=== PATIENT | male | born 1940 | race Two or more races ===

== ENCOUNTER 2020-01-18 14:47 | Inpatient (IN) | payer MEDICARE, OTHER ==
[~2020-01-18] VITALS: Ht 170.2 cm; Wt 69.6 kg
[2020-01-18 16:42] LABS: Basophils # (auto) 0 10 ^3/uL (0-0.2); Basophils % (auto) 0.3 % (0.0-2.0); Eosinophils # (auto) 0 10 ^3/uL (0-0.8); Hematocrit 43.6 % (41.0-53.0); Hemoglobin 14.8 g/dL (13.5-17.5); Lymphocytes # (auto) 0.3 10 ^3/uL (0.4-5.4); Lymphocytes % (auto) 2.3 % (10.0-50.0); Mean Corpuscular Hemoglobin 31.4 pg (28.0-32.0); Mean Corpuscular Hgb Conc. 33.9 g/dL (32.0-36.0); Mean Corpuscular Volume 92.5 fL (80.0-100.0); Monocytes # (auto) 0.4 10 ^3/uL (0-1.3); Monocytes % (auto) 3.5 % (0.0-12.0); Neutrophils # (auto) 10.8 10 ^3/uL (1.6-8.6); Neutrophils % (auto) 93.9 % (37.0-80.0); Nucleated Red Blood Cells % 0.2 %; Platelet Count (auto) 249 10^3/uL (140-450); Red Blood Cells 4.71 10^6/uL (4.5-5.90); Red Cell Distribution Width 13.9 % (11.8-14.3); White Blood Cell 11.5 10^3/uL (4.4-10.8)
[2020-01-18 16:59] LABS: INR 0.99 (0.9-1.15); Partial Thromboplastin Time 29.6 sec (23.0-31.2)
[2020-01-18 17:00] LABS: Albumin 2.2 g/dL (3.4-5.0); Potassium 3.9 mmol/L (3.5-5.1)
[2020-01-18 17:03] LABS: Lactic Acid w/Reflex 3.7 mmol/L (0.4-2.0)
[2020-01-18 17:05] LABS: Total Protein 6.9 g/dL (6.4-8.2)
[2020-01-18] MEDS ORDERED: DexAMETHasone 4 MG TAB PO ONE (18:00)
[2020-01-18] MEDS ORDERED: ASCORBIC ACID 500 MG TAB PO ONE (18:00)
[2020-01-18] MEDS ORDERED: ACETAMINOPHEN 325 MG TAB PO ONE (18:00)
[2020-01-18] MEDS ORDERED: AZITHROMYCIN 500MG/ 250ML 250 ML IV ONE (18:00)
[2020-01-18] MEDS ORDERED: HYDROcodone-ACET 5/325MG TAB PO PRN (18:45)
[2020-01-18] MEDS ORDERED: ONDANSETRON HCL 4 MG/2 ML VIAL IV PRN (18:45)
[2020-01-18] MEDS ORDERED: MORPHINE SULF INJ 2 MG/ML SYRINGE 1ML IV PRN ×2 (18:45)
[2020-01-18] MEDS ORDERED: NITROGLYCERIN 0.4 MG SL TAB SL PRN (18:45)
[2020-01-18] MEDS ORDERED: ENOXAPARIN SOD 30 MG/0.3 ML SYRINGE SC SCH (18:51)
[2020-01-18] MEDS: SODIUM CHLORIDE 0.9% 1,000 ML IV SCH ×2 (18:57→20:34)
[2020-01-18] MEDS: ENOXAPARIN SOD 40 MG/0.4 ML SYRINGE SC SCH (19:11)
[2020-01-18] MEDS: ZINC SULFATE 220mg CAP or TAB PO SCH (19:11)
[2020-01-18] MEDS: CHOLECALCIFEROL (VITD3) 2,000 UNIT CAP PO SCH (19:11)
[2020-01-18 19:12] LABS: Lactate Dehydrogenase 507 U/L (87-241)
[2020-01-18 19:24] LABS: CRP High Sensitivity > 19.0 mg/dL (< 0.3)
[2020-01-18] MEDS: cefTRIAXone 1GM/50ML D5W 50 ML IV SCH (20:34)
[2020-01-18] MEDS ORDERED: BUDESONIDE (INHALATION) 0.5 MG/2 ML NEB NEB SCH (22:00)
[2020-01-18] MEDS: BUDESONIDE (INHALATION) 180 MCG IH IN SCH (22:47)
[2020-01-19] MEDS: SODIUM CHLORIDE 0.9% 1,000 ML IV SCH ×2 (03:38→21:08)
[2020-01-19 05:30] LABS: Basophils # (auto) 0.1 10 ^3/uL (0-0.2); Basophils % (auto) 0.9 % (0.0-2.0); Eosinophils # (auto) 0 10 ^3/uL (0-0.8); Hematocrit 37.7 % (41.0-53.0); Hemoglobin 13.2 g/dL (13.5-17.5); Lymphocytes # (auto) 0.3 10 ^3/uL (0.4-5.4); Lymphocytes % (auto) 2.9 % (10.0-50.0); Mean Corpuscular Hemoglobin 32.2 pg (28.0-32.0); Mean Corpuscular Volume 92.1 fL (80.0-100.0); Monocytes # (auto) 0.3 10 ^3/uL (0-1.3); Monocytes % (auto) 3.5 % (0.0-12.0); Neutrophils # (auto) 8.4 10 ^3/uL (1.6-8.6); Neutrophils % (auto) 92.7 % (37.0-80.0); Nucleated Red Blood Cells % 0.1 %; Platelet Count (auto) 226 10^3/uL (140-450); Red Blood Cells 4.09 10^6/uL (4.5-5.90); Red Cell Distribution Width 14.3 % (11.8-14.3); White Blood Cell 9.1 10^3/uL (4.4-10.8)
[2020-01-19 05:58] LABS: Albumin 1.7 g/dL (3.4-5.0); Calcium 7.4 mg/dL (8.5-10.1); Potassium 4.3 mmol/L (3.5-5.1)
[2020-01-19 06:02] LABS: BUN/Creatinine Ratio 34.8; Bilirubin, Total 0.6 mg/dL (0.2-1.0); Total Protein 5.7 g/dL (6.4-8.2)
[2020-01-19] MEDS: BUDESONIDE (INHALATION) 180 MCG IH IN SCH ×2 (06:07→21:55)
[2020-01-19] MEDS: cefTRIAXone 1GM/50ML D5W 50 ML IV SCH (08:57)
[2020-01-19] MEDS: ALBUTEROL SULF HFA 90MCG INH 200DOSE IN PRN ×2 (09:22→21:54)
[2020-01-19] MEDS: DexAMETHasone SOD PHOS 10MG/1ML VIAL INJ IV SCH (10:28)
[2020-01-19] MEDS: AZITHROMYCIN 500MG/ 250ML 250 ML IV SCH (10:28)
[2020-01-19] MEDS: FAMOTIDINE 20 MG TAB PO SCH (10:29)
[2020-01-19] MEDS: CHOLECALCIFEROL (VITD3) 2,000 UNIT CAP PO SCH (10:29)
[2020-01-19] MEDS: ASCORBIC ACID 1,000 MG TAB PO SCH (10:29)
[2020-01-19] MEDS: ZINC SULFATE 220mg CAP or TAB PO SCH (10:29)
[2020-01-19] MEDS: ENOXAPARIN SOD 40 MG/0.4 ML SYRINGE SC SCH (18:40)
[2020-01-20] MEDS: BUDESONIDE (INHALATION) 180 MCG IH IN SCH ×2 (06:50→18:30)
[2020-01-20] MEDS: ALBUTEROL SULF HFA 90MCG INH 200DOSE IN PRN ×2 (06:50→19:07)
[2020-01-20 08:19] LABS: Basophils # (auto) 0 10 ^3/uL (0-0.2); Basophils % (auto) 0.1 % (0.0-2.0); Eosinophils # (auto) 0 10 ^3/uL (0-0.8); Hematocrit 36.3 % (41.0-53.0); Hemoglobin 12.1 g/dL (13.5-17.5); Lymphocytes # (auto) 0.3 10 ^3/uL (0.4-5.4); Lymphocytes % (auto) 3.7 % (10.0-50.0); Mean Corpuscular Hemoglobin 30.8 pg (28.0-32.0); Mean Corpuscular Hgb Conc. 33.2 g/dL (32.0-36.0); Mean Corpuscular Volume 92.6 fL (80.0-100.0); Monocytes # (auto) 0.4 10 ^3/uL (0-1.3); Monocytes % (auto) 5.3 % (0.0-12.0); Neutrophils # (auto) 7.6 10 ^3/uL (1.6-8.6); Neutrophils % (auto) 90.9 % (37.0-80.0); Nucleated Red Blood Cells % 0.1 %; Platelet Count (auto) 294 10^3/uL (140-450); Red Blood Cells 3.92 10^6/uL (4.5-5.90); Red Cell Distribution Width 14.2 % (11.8-14.3); White Blood Cell 8.4 10^3/uL (4.4-10.8)
[2020-01-20 08:34] LABS: Potassium 4.1 mmol/L (3.5-5.1)
[2020-01-20 08:48] LABS: Albumin 1.7 g/dL (3.4-5.0); BUN/Creatinine Ratio 40.3; Bilirubin, Total 0.4 mg/dL (0.2-1.0); Calcium 7.3 mg/dL (8.5-10.1); Total Protein 5.4 g/dL (6.4-8.2)
[2020-01-20] MEDS: cefTRIAXone 1GM/50ML D5W 50 ML IV SCH (09:00)
[2020-01-20] MEDS: FAMOTIDINE 20 MG TAB PO SCH (10:00)
[2020-01-20] MEDS: ZINC SULFATE 220mg CAP or TAB PO SCH (10:00)
[2020-01-20] MEDS: DexAMETHasone SOD PHOS 10MG/1ML VIAL INJ IV SCH (10:00)
[2020-01-20] MEDS: AZITHROMYCIN 500MG/ 250ML 250 ML IV SCH (10:00)
[2020-01-20] MEDS: CHOLECALCIFEROL (VITD3) 2,000 UNIT CAP PO SCH (10:00)
[2020-01-20] MEDS: ASCORBIC ACID 1,000 MG TAB PO SCH (10:00)
[2020-01-20] MEDS: SODIUM CHLORIDE 0.9% 1,000 ML IV SCH ×2 (10:39→21:29)
[2020-01-20] MEDS ORDERED: FUROSEMIDE 20 MG/2 ML VIAL IV ONE (16:30)
[2020-01-20] MEDS: ENOXAPARIN SOD 40 MG/0.4 ML SYRINGE SC SCH (17:40)
[2020-01-20] MEDS ORDERED: DEXTROSE (50%) 50ML SYRG IV PRN (23:15)
[2020-01-20] MEDS ORDERED: LORazepam 0.5 MG TAB PO PRN (23:15)
[2020-01-20] MEDS ORDERED: REMDESIVIR PER PHARMACY 0 ML IV SCH (23:15)
[2020-01-20] MEDS ORDERED: REMDESIVIR 200 MG in NS 210ml LOADING DOSE ADULT IV ONE (23:30)
--- NOTE | 2020-01-21 04:50 | NUR ---
Telemetry admit from [facility]ENET[facility] TREVI[facility]OEDWINA admitted to Telemetry unit after SBAR received. Patient oriented to Alma Delia Hansen, RN primary RN, unit, room, bed, and unit policies regarding patient care and visiting hours. Patient now on continuous telemetry monitoring, tele box # 37 and telemetry reading on arrival to unit is SR. Patient placed on bedside oxygen, weighed by bedscale and encouraged to call if they need something. All questions and concerns addressed, patient verbalized understanding. Note: alert, oriented. urdu, advanced manufacturing vice president at bedside. on oxygen 15L via NR. no s/s od distress.
[2020-01-21 05:18] LABS: Chloride 110 mmol/L (98-107); Sodium 140 mmol/L (136-145)
[2020-01-21 05:30] VITALS: BP 147/67
[2020-01-21 05:56] LABS: Anion Gap 7 (5-15); BUN/Creatinine Ratio 36.6; Blood Urea Nitrogen 41 mg/dL (7-18); Calcium 7.6 mg/dL (8.5-10.1); Carbon Dioxide 23 mmol/L (21-32); GFR African American 81 mL/min; GFR Non-African American 67 mL/min; Glucose 117 mg/dL (74-106); Magnesium 2.7 mg/dL (1.6-2.6)
[2020-01-21 05:57] LABS: Cholesterol 114 mg/dL (< 200); HDL Cholesterol 26 mg/dL (40-59); LDL Cholesterol 79 mg/dL (< 100); Triglycerides 98 mg/dL (< 150)
[2020-01-21 06:37] VITALS: BP 147/67
[2020-01-21] MEDS: ACCU-CHEK COMFORT CURVE STRIP VI SCH ×4 (06:48→22:34)
[2020-01-21] MEDS: InsuLIN REG 1unit/0.01ml Soln (100units/ml) SC SCH ×4 (06:48→22:33)
--- NOTE | 2020-01-21 07:18 | NUR ---
Closing Note patient resting in bed with eyes closed, oxygen on at 15L via non-rebreather o2 sat 91%, no s/s of distress or SOB. Bed in lowest locked position with side rails up x 2 and kip light within reach. endorsed care to day shift RN
[2020-01-21 09:00] VITALS: BP 122/62
[2020-01-21] MEDS: BUDESONIDE (INHALATION) 180 MCG IH IN SCH ×2 (10:00→21:40)
--- NOTE | 2020-01-21 11:25 | NUR ---
Assessment Patient is a 79 year old male, patient is alert and oriented. Patient cognitive abilities are intact. Patient stated prior to being admitted to [facility], he could do all ADL's and ambulate independently. Patient stated that he is a diabetic. Patient stated that he lives with his Karen ([phone]), patient has plans to return home post discharge. Patient is retired and receives social security as income. Patient stated that he has transportation post discharge. Patient is receptive to receive Advance Directive form prior to discharge. Discharge planning: Patient will return home post discharge, patient will follow up care with his PCP post discharge. Patient has all supplies to resume home care for diabetes. There are no other discharge needs to address at the moment. Addendum: 01/21/20 at 1131 by ANGELO WESTBROOK Amended: Links added. Addendum: 01/21/20 at 1134 by ANGELO WESTBROOK Please disregard assessment notes above.
[2020-01-21] MEDS ORDERED: IOHEXOL 350 MG/ML 100ML IJ ONE (12:47)
[2020-01-21] MEDS: ALBUTEROL SULF HFA 90MCG INH 200DOSE IN PRN (12:57)
[2020-01-21 13:00] VITALS: BP 122/65
--- NOTE | 2020-01-21 14:45 | NUR ---
PULMONARY Dr Davidson at bedside for Pulmonary follow up, no new orders received at this time. Patient updated on plan of care, verbalized understanding.
[2020-01-21] MEDS ORDERED: REMDESIVIR 200 MG in NS 210ml LOADING DOSE ADULT IV ONE (15:00)
[2020-01-21] MEDS: DexAMETHasone SOD PHOS 10MG/1ML VIAL INJ IV SCH (15:01)
[2020-01-21] MEDS: cefTRIAXone 1GM/50ML D5W 50 ML IV SCH (15:01)
[2020-01-21] MEDS: FUROSEMIDE 20 MG/2 ML VIAL IV SCH (15:02)
[2020-01-21] MEDS: AZITHROMYCIN 500MG/ 250ML 250 ML IV SCH (15:02)
[2020-01-21] MEDS: ZINC SULFATE 220mg CAP or TAB PO SCH (15:02)
[2020-01-21] MEDS: CHOLECALCIFEROL (VITD3) 2,000 UNIT CAP PO SCH (15:03)
[2020-01-21] MEDS: FAMOTIDINE 20 MG TAB PO SCH (15:03)
[2020-01-21] MEDS: ENOXAPARIN SOD 100 MG/1 ML SYRINGE SC SCH ×2 (15:03→22:34)
[2020-01-21] MEDS: ASCORBIC ACID 1,000 MG TAB PO SCH (15:03)
--- NOTE | 2020-01-21 16:30 | NUR ---
ROUNDS Dr Espinal at bedside for rounds, new orders received and followed through. Patient updated on plan of care, verbalized understanding.
[2020-01-21 17:00] VITALS: BP 124/66
--- NOTE | 2020-01-21 19:30 | NUR ---
OPENING NOTE RECEIVED REPORT FROM DAY SHIFT RN. PATIENT IS A&O X'S 4 WITH NO S/S OF DISTRESS AND REPORTS NO PAIN AT THIS TIME. PATIENT IS ON 15L NRB MASK. SPO2 IS AT 90%. EDUCATED PATIENT ON POC AND TO USE CALL LIGHT WHEN IN NEED OF ANY ASSISTANCE. PATIENT VERBALIZED UNDERSTANDING. WITH A HELP OF RN ROSI GARCIA TRANSLATE, PATIENT SIGNED CONSENT FORMS FOR CONVALESCENT PLASMA AND REMDESIVIR. ALL QUESTIONS ANSWERED. BED IS IN LOWEST/LOCKED POSITION WITH SIDE RAILS UP X'S 2 AND CALL LIGHT IS WITHIN REACH OF PATIENT. WILL CONTINUE CARE.
--- NOTE | 2020-01-21 19:50 | NUR ---
SPOKE WITH FAMILY MEMBER PASSWORD OBTAINED AFTER CONFIRMING WITH PATIENT. PATIENT'S DAUGHTER WAS UPDATED ON POC. SHE WAS INFORMED AND ALREADY AWARE OF THE PLAN OF REMDESIVIR AND CONVALESCENT PLASMA. SHE AGREED WITH POC. ALL QUESTIONS ANSWERED AT THIS TIME.
[2020-01-21 22:00] VITALS: BP 102/54
--- NOTE | 2020-01-21 22:37 | NUR ---
REMDESIVIR VS START 106/58 HR 92 RR 22 O2 91% 15 MINS 112/67 HR 84 RR18 POST 118/55 HR 79 O2 90% PATIENT TOLERATED WELL. PATIENT DENIES ANY SYMPTOMS
[2020-01-22 05:00] VITALS: BP 137/74
[2020-01-22] MEDS: ACCU-CHEK COMFORT CURVE STRIP VI SCH ×4 (06:14→22:33)
[2020-01-22] MEDS: InsuLIN REG 1unit/0.01ml Soln (100units/ml) SC SCH ×5 (06:14→22:00)
[2020-01-22 07:07] LABS: Calcium 7.6 mg/dL (8.5-10.1); Potassium 4.3 mmol/L (3.5-5.1)
--- NOTE | 2020-01-22 07:15 | NUR ---
Opening Shift Note Received report from hourly shift manager nurse. Assumed care of patient, asleep at this time. No S/S of distress/SOB or pain.
[2020-01-22] MEDS: ALBUTEROL SULF HFA 90MCG INH 200DOSE IN PRN ×2 (07:49→22:03)
[2020-01-22] MEDS: BUDESONIDE (INHALATION) 180 MCG IH IN SCH ×3 (07:49→22:03)
--- NOTE | 2020-01-22 07:49 | NUR ---
Respiratory note: PT RECEIVED ON 15L NRB. NO RESPIRATORY DISTRESS NOTED WILL CONTINUE TO MONITOR.
[2020-01-22] MEDS: cefTRIAXone 1GM/50ML D5W 50 ML IV SCH (09:30)
[2020-01-22] MEDS: DexAMETHasone SOD PHOS 10MG/1ML VIAL INJ IV SCH (09:30)
[2020-01-22] MEDS: FAMOTIDINE 20 MG TAB PO SCH (09:32)
[2020-01-22] MEDS: ZINC SULFATE 220mg CAP or TAB PO SCH (09:32)
[2020-01-22] MEDS: FUROSEMIDE 20 MG/2 ML VIAL IV SCH (09:32)
[2020-01-22] MEDS: CHOLECALCIFEROL (VITD3) 2,000 UNIT CAP PO SCH (09:32)
[2020-01-22] MEDS: ASCORBIC ACID 1,000 MG TAB PO SCH (09:32)
[2020-01-22] MEDS: ENOXAPARIN SOD 100 MG/1 ML SYRINGE SC SCH (09:33)
[2020-01-22] MEDS: AZITHROMYCIN 500MG/ 250ML 250 ML IV SCH (11:09)
--- NOTE | 2020-01-22 11:15 | NUR ---
PULMONARY Dr Davidson at bedside for Pulmonary consult, new orders received and followed through. Patient updated on plan of care, verbalized understanding.
--- NOTE | 2020-01-22 11:50 | NUR ---
FEBRILE Axillary temp 101.6 F. Cooling measures applied and prescribed Tylenol administered. Patient educated on importance of keeping blankets off, verbalized understanding.
[2020-01-22] MEDS: ACETAMINOPHEN 500 MG TAB PO PRN (11:53)
--- NOTE | 2020-01-22 12:18 | NUR ---
ROUNDS Dr Gudino at bedside for rounds, new orders received and followed through. Patient updated on plan of care, verbalized understanding.
[2020-01-22 13:00] VITALS: BP 108/59
--- NOTE | 2020-01-22 16:30 | NUR ---
REMDESIVIR VS 1630 PRE: 104/50, 77 1645 15 MIN: 104/50, 77 1730 POST: 100/43, 74
[2020-01-22 17:00] VITALS: BP 104/50
[2020-01-22] MEDS: REMDESIVIR 100 MG in SODIUM CHL 0.9% 250 ML IV SCH (17:19)
--- NOTE | 2020-01-22 19:05 | NUR ---
Opening Shift Note Assumed care of patient, awake and alert. Mauritanian speaking. No S/S of distress/SOB or pain. Patient is on 15 L Non rebreather mask with oxygen saturation of 91%. Encouraged patient to do prone position oxygen level is 95-97%. Instructed on POC and to call for assist PRN, will continue to monitor for changes Q1hr and PRN.
[2020-01-22 22:00] VITALS: BP 114/79
[2020-01-22] MEDS: ENOXAPARIN SOD 80 MG/0.8ML SYRINGE SC SCH (22:33)
[2020-01-23] VITALS (8 sets, daily range): BP systolic 104–122; BP diastolic 47–64
--- NOTE | 2020-01-23 01:03 | NUR ---
Start of convalescent plasma transfusion. Patient no SOB and no distress seen. vital signs within normal limit. two nurses identifier verification made with jairo ramsey. will continue to monitor patient.
--- NOTE | 2020-01-23 02:07 | NUR ---
ongoing plasma transfusion. no acute distress see. continue monitoring
--- NOTE | 2020-01-23 02:45 | NUR ---
End of plasma transfusion. patient tolerated well.
[2020-01-23 06:53] LABS: Potassium 4.1 mmol/L (3.5-5.1)
[2020-01-23] MEDS: InsuLIN REG 1unit/0.01ml Soln (100units/ml) SC SCH ×4 (07:00→22:00)
[2020-01-23 07:01] LABS: Albumin 1.8 g/dL (3.4-5.0); Bilirubin, Total 0.7 mg/dL (0.2-1.0); Calcium 7.7 mg/dL (8.5-10.1); Total Protein 6.4 g/dL (6.4-8.2)
[2020-01-23] MEDS: ACCU-CHEK COMFORT CURVE STRIP VI SCH ×4 (07:08→22:45)
[2020-01-23] MEDS: BUDESONIDE (INHALATION) 180 MCG IH IN SCH ×2 (07:54→22:27)
[2020-01-23] MEDS: ALBUTEROL SULF HFA 90MCG INH 200DOSE IN PRN ×2 (07:54→22:28)
--- NOTE | 2020-01-23 07:54 | NUR ---
Respiratory note: RECEIVED PT ON 15L NRB. NO RESPIRATORY DISTRESS NOTED. WILL CONT. TO MONITOR.
--- NOTE | 2020-01-23 08:24 | NUR ---
Assessment Patient is a 79 year old male, patient was unable to speak with SW, SW called patient daughter Bharti. Per Bharti, patient is alert and oriented. Per Bharti, patient cognitive abilities are intact. Per Bharti, patient could do all ADL's and ambulate independently. Per Bharti, patient is retired and receives social security benefits as income. Per Bharti, patient lives with his and daughter. Per Bharti, patient will return home post discharge, she or her sister will provide transportation post discharge. Per Bahrti, her mom, siblings, and herself are her dad support system. Per Bharti, is requesting Advance Directive forms. Discharge planning: Patient will return home post discharge, patient will follow up care with his PCP post discharge. SUNDAY will provide Advance Directive to patient prior to discharge. There are no other discharge needs to address at the moment. Addendum: 01/23/20 at 0832 by ANGELO WESTBROOK Amended: Links added.
[2020-01-23] MEDS ORDERED: REMDESIVIR PER PHARMACY 0 ML IV SCH (09:45)
[2020-01-23] MEDS: DexAMETHasone SOD PHOS 10MG/1ML VIAL INJ IV SCH (10:15)
[2020-01-23] MEDS: cefTRIAXone 1GM/50ML D5W 50 ML IV SCH (10:15)
[2020-01-23] MEDS: ZINC SULFATE 220mg CAP or TAB PO SCH (10:15)
[2020-01-23] MEDS: ASCORBIC ACID 1,000 MG TAB PO SCH (10:15)
[2020-01-23] MEDS: FAMOTIDINE 20 MG TAB PO SCH (10:15)
[2020-01-23] MEDS: ENOXAPARIN SOD 80 MG/0.8ML SYRINGE SC SCH ×2 (10:16→22:45)
[2020-01-23] MEDS: AZITHROMYCIN 500MG/ 250ML 250 ML IV SCH (10:16)
[2020-01-23] MEDS: FUROSEMIDE 20 MG/2 ML VIAL IV SCH (10:17)
[2020-01-23] MEDS: CHOLECALCIFEROL (VITD3) 2,000 UNIT CAP PO SCH (10:51)
[2020-01-23] MEDS: REMDESIVIR 100 MG in SODIUM CHL 0.9% 250 ML IV SCH (16:34)
[2020-01-23] MEDS: ACETAMINOPHEN 500 MG TAB PO PRN (17:17)
--- NOTE | 2020-01-23 19:10 | NUR ---
Opening Shift Note Assumed care of patient, awake and alert. Fijian speaking. No S/S of distress/SOB or pain. Patient is on 15 L Non rebreather mask with oxygen saturation of 90-92%. Encouraged patient to do prone position and use IS. Bed in low locked position, siderails up x2, call light within reach. Instructed on POC and to call for assist PRN, will continue to monitor for changes Q1hr and PRN.
--- NOTE | 2020-01-24 01:00 | NUR ---
Patient would go back to supine position. Consistent reminder needed to turn prone position. will continue to monitor
[2020-01-24] MEDS: ACETAMINOPHEN 500 MG TAB PO PRN (02:17)
[2020-01-24 05:00] VITALS: BP 105/62
[2020-01-24] MEDS: InsuLIN REG 1unit/0.01ml Soln (100units/ml) SC SCH ×4 (06:33→21:53)
[2020-01-24] MEDS: ACCU-CHEK COMFORT CURVE STRIP VI SCH ×4 (06:33→21:49)
[2020-01-24] MEDS: ALBUTEROL SULF HFA 90MCG INH 200DOSE IN PRN ×2 (07:31→23:30)
[2020-01-24] MEDS: BUDESONIDE (INHALATION) 180 MCG IH IN SCH ×2 (07:31→21:40)
[2020-01-24 07:49] LABS: Potassium 4.3 mmol/L (3.5-5.1)
[2020-01-24 07:58] LABS: Albumin 1.4 g/dL (3.4-5.0); BUN/Creatinine Ratio 28.1; Bilirubin, Total 0.5 mg/dL (0.2-1.0); Calcium 7.3 mg/dL (8.5-10.1); Total Protein 5.3 g/dL (6.4-8.2)
[2020-01-24 09:00] VITALS: BP 121/59
[2020-01-24] MEDS: DexAMETHasone SOD PHOS 10MG/1ML VIAL INJ IV SCH (10:36)
[2020-01-24] MEDS: ZINC SULFATE 220mg CAP or TAB PO SCH (10:36)
[2020-01-24] MEDS: FAMOTIDINE 20 MG TAB PO SCH (10:36)
[2020-01-24] MEDS: cefTRIAXone 1GM/50ML D5W 50 ML IV SCH (10:36)
[2020-01-24] MEDS: ENOXAPARIN SOD 80 MG/0.8ML SYRINGE SC SCH ×2 (10:37→21:50)
[2020-01-24] MEDS: ASCORBIC ACID 1,000 MG TAB PO SCH (10:37)
[2020-01-24] MEDS: CHOLECALCIFEROL (VITD3) 2,000 UNIT CAP PO SCH (10:37)
[2020-01-24] MEDS: FUROSEMIDE 20 MG/2 ML VIAL IV SCH (10:38)
--- NOTE | 2020-01-24 12:33 | NUR ---
DR MONSIVAIS AT BEDSIDE FOR PULMONOLOGY CONSULT. PATIENT INSTRUCTED TO PRONE MUCH POSSIBLE. ABG ORDERED
[2020-01-24 13:00] VITALS: BP 115/54
--- NOTE | 2020-01-24 14:25 | NUR ---
PAGED DR OBRIEN FOR ABG RESULTS
[2020-01-24] MEDS: AZITHROMYCIN 500MG/ 250ML 250 ML IV SCH (14:35)
[2020-01-24] MEDS: REMDESIVIR 100 MG in SODIUM CHL 0.9% 250 ML IV SCH (15:29)
--- NOTE | 2020-01-24 16:03 | NUR ---
REPORT GIVEN TO ROGER Coyle TRANSFERRED PATIENT TO ROOM 295 B NO SIGNS OF DISTRESS 91% ON 15 L NRB
--- NOTE | 2020-01-24 16:08 | NUR ---
patient transferred to 95B, patient alert and orientedx4, RT at bedside to set up highflow.
[2020-01-24 17:21] VITALS: BP 110/58
--- NOTE | 2020-01-24 18:37 | NUR ---
Patient educated on turning to sides and proning to allow for better oxygenation, however patient doesn't want to prone, however he did somewhat turn to side. Patient educated on risks of not proning and benefits of.
--- NOTE | 2020-01-24 19:14 | NUR ---
Patient on high flow still, tolerating well, patient resting watching TV, respirations even and non labored, patient saturation at 90% currently.
[2020-01-24 21:39] VITALS: BP 94/46
[2020-01-25] VITALS (7 sets, daily range): BP systolic 99–142; BP diastolic 50–61
[2020-01-25] MEDS: FUROSEMIDE 20 MG/2 ML VIAL IV SCH ×2 (00:50→09:46)
[2020-01-25] MEDS: DexAMETHasone SOD PHOS 10MG/1ML VIAL INJ IV SCH ×2 (00:50→09:45)
--- NOTE | 2020-01-25 03:00 | NUR ---
Patient O2 in low 80s Placed in prone position. Patient increased to 97%. Patient tolerating well. Will continue to monitor.
--- NOTE | 2020-01-25 05:03 | NUR ---
RT called for O2 sat 78% Patient refusing to pronate and c/o agitation regarding his oxygen treatment.
[2020-01-25] MEDS: InsuLIN REG 1unit/0.01ml Soln (100units/ml) SC SCH ×3 (06:36→17:33)
[2020-01-25] MEDS: ACCU-CHEK COMFORT CURVE STRIP VI SCH ×3 (06:36→17:31)
--- NOTE | 2020-01-25 08:03 | NUR ---
Closing shift note Patient resting without s/s of distress at this time. Endorsed care to day shift RN.
[2020-01-25] MEDS: cefTRIAXone 1GM/50ML D5W 50 ML IV SCH (09:45)
[2020-01-25] MEDS: FAMOTIDINE 20 MG TAB PO SCH (09:47)
[2020-01-25] MEDS: AZITHROMYCIN 500MG/ 250ML 250 ML IV SCH (09:47)
[2020-01-25] MEDS: CHOLECALCIFEROL (VITD3) 2,000 UNIT CAP PO SCH (09:47)
[2020-01-25] MEDS: ZINC SULFATE 220mg CAP or TAB PO SCH (09:47)
[2020-01-25] MEDS: ASCORBIC ACID 1,000 MG TAB PO SCH (09:47)
--- NOTE | 2020-01-25 09:47 | NUR ---
Nutrition Assessment Est energy needs 1099-1862 kcal (20-25 kcal/kg BW 76.2kg) Est protein needs 61-76g (0.8-1g/kg BW 76.2kg) WIll monitor and reassess prn. Addendum: 01/25/20 at [address] Amended: Links added.
[2020-01-25] MEDS: BUDESONIDE (INHALATION) 180 MCG IH IN SCH ×2 (10:00→22:00)
--- NOTE | 2020-01-25 10:55 | NUR ---
gowkandy changed, josh applied under patient, patient got urine on fitted sheet however states he doesn't have the energy to have me change sheet.
--- NOTE | 2020-01-25 10:55 | NUR ---
Per Dr reyes, urgent ABG.
[2020-01-25] MEDS: ENOXAPARIN SOD 80 MG/0.8ML SYRINGE SC SCH ×2 (11:22→23:30)
[2020-01-25 12:19] LABS: Hematocrit 31.2 % (41.0-53.0); Hemoglobin 10.5 g/dL (13.5-17.5); Mean Corpuscular Hemoglobin 31.1 pg (28.0-32.0); Mean Corpuscular Hgb Conc. 33.7 g/dL (32.0-36.0); Mean Corpuscular Volume 92.2 fL (80.0-100.0); Platelet Count (auto) 364 10^3/uL (140-450); Red Blood Cells 3.38 10^6/uL (4.5-5.90); Red Cell Distribution Width 14.5 % (11.8-14.3); White Blood Cell 14.8 10^3/uL (4.4-10.8)
[2020-01-25 12:35] LABS: Basophils % (manual) 0 (0.0-2.0); Blast Cells 0; Eosinophils % (manual) 0 (0-7); Myelocytes % 0; Promyelocytes % 0; Reactive Lymphocytes 0
[2020-01-25 12:51] LABS: INR 1.08 (0.9-1.15)
[2020-01-25 12:52] LABS: Potassium 3.9 mmol/L (3.5-5.1)
[2020-01-25 13:15] LABS: Albumin 1.5 g/dL (3.4-5.0); BUN/Creatinine Ratio 29.7; Bilirubin, Total 0.4 mg/dL (0.2-1.0); CRP High Sensitivity 13.3 mg/dL (< 0.3); Magnesium 2.5 mg/dL (1.6-2.6); Total Protein 5.8 g/dL (6.4-8.2)
--- NOTE | 2020-01-25 13:26 | NUR ---
patient proning currently with oxygen saturation of 97%.
--- NOTE | 2020-01-25 14:15 | NUR ---
patient desaturated to the 70's when attempting to use the urinal. Assisted patient to use urinal, then turned patient onto his side, currently saturating at 91%.
[2020-01-25] MEDS: REMDESIVIR 100 MG in SODIUM CHL 0.9% 250 ML IV SCH (14:47)
--- NOTE | 2020-01-25 15:00 | NUR ---
remdesevir vitals pre 110/56 HR 77 15 min 116/61 HR 78 post 112/66 80
[2020-01-25 15:06] LABS: Band Neutrophils % (manual) 3; Lymphocytes % (manual) 1 (10.0-50.0); Metamyelocytes % 1; Monocytes % (manual) 4 (0-12)
[2020-01-25 15:23] LABS: Lactic Acid w/Reflex 3.4 mmol/L (0.4-2.0)
[2020-01-25] MEDS ORDERED: FUROSEMIDE 40 MG/4 ML VIAL IV ONE (15:30)
[2020-01-25] MEDS ORDERED: POTASSIUM CHL 20 Meq TABLET PO ONE (15:30)
[2020-01-25] MEDS ORDERED: LORazepam 2MG/ML-1ML VIAL IV PRN (15:30)
[2020-01-25] MEDS ORDERED: DEXTROSE (50%) 50ML SYRG IV PRN (15:30)
[2020-01-25] MEDS: PIPERACILLIN-TAZOB 3.375GM 100 ML IV SCH (17:33)
--- NOTE | 2020-01-25 17:33 | NUR ---
per pharmacy hold zosyn to give actemera.
[2020-01-25] MEDS ORDERED: ACETAMINOPHEN 650 mg PER 20.3 mL UD PO ONE (18:00)
[2020-01-25] MEDS ORDERED: diphenhdrAMINE HCL 50 MG/1 ML VL IV ONE (18:00)
[2020-01-25] MEDS ORDERED: methylPREDNISolone SOD SUCC 40 MG/ML VL IV ONE (18:00)
[2020-01-25] MEDS ORDERED: TOCILIZUMAB 400 MG in SODIUM CHL 0.9% 80 ML IV ONE (18:30)
--- NOTE | 2020-01-25 19:22 | NUR ---
insert joshua per dr reyes, if unable to obtain then ok to use urinal for accurate output.
--- NOTE | 2020-01-25 19:23 | NUR ---
Patient tolerated actemra no s/s noted.
--- NOTE | 2020-01-25 19:40 | NUR ---
Opening Shift Note Assumed care of patient, awake and alert x4. Patient is on BIPAP 16/8, FIO2: 100%, SPO2: 98%, RR: 24 at this time. No sign/symptoms of distress noted or verbalized at this time. Instructed on plan of care and encouraged patient to call for assistance as needed, patient verbalized understanding. Bed is locked in lowest position, side rails x 2 are up, call light is within reach, and bed alarm is on.
[2020-01-25] MEDS: ALBUTEROL SULF HFA 90MCG INH 200DOSE IN PRN (22:58)
[2020-01-25] MEDS: POTASSIUM CHL 10 Meq TABLET PO SCH (23:30)
--- NOTE | 2020-01-25 23:30 | NUR ---
Joshua catheter insertion Patient assessed and determined to be in need of joshua catheter, as ordered by MD. Patient educated on catheter and reason for insertion. All questions answered. Joshua catheter 14 guage Turkmen inserted with clean sterile technique and inflated balloon with 10cc of sterile water. Patient tolerated well.
--- NOTE | 2020-01-26 | NUR ---
Urine Sample Urine sample collected and sent to lab via bullet as ordered by .
--- NOTE | 2020-01-26 00:40 | NUR ---
IV Insertion IV access obtained, via clean sterile technique by inserting 22 gauge catheter at left hand after 2 attempts. IV secured properly. No trauma to site. Patient tolerated well. IV Removal IV DC'd to right upper arm due to infiltration. IV DC'd with clean sterile technique, catheter fully intact. Pressure dressing applied to site. Patient tolerated well.
[2020-01-26] MEDS: PIPERACILLIN-TAZOB 3.375GM 100 ML IV SCH ×4 (00:50→17:33)
[2020-01-26 05:00] VITALS: BP 91/54
[2020-01-26] MEDS: InsuLIN REG 1unit/0.01ml Soln (100units/ml) SC SCH ×4 (06:00→17:36)
[2020-01-26] MEDS: ACCU-CHEK COMFORT CURVE STRIP VI SCH ×4 (06:12→17:34)
[2020-01-26 07:29] LABS: Basophils # (auto) 0 10 ^3/uL (0-0.2); Basophils % (auto) 0.2 % (0.0-2.0); Eosinophils # (auto) 0 10 ^3/uL (0-0.8); Hematocrit 31.7 % (41.0-53.0); Hemoglobin 10.2 g/dL (13.5-17.5); Lymphocytes # (auto) 0.1 10 ^3/uL (0.4-5.4); Lymphocytes % (auto) 0.9 % (10.0-50.0); Mean Corpuscular Hemoglobin 29.8 pg (28.0-32.0); Mean Corpuscular Hgb Conc. 32.3 g/dL (32.0-36.0); Mean Corpuscular Volume 92.4 fL (80.0-100.0); Monocytes # (auto) 0.2 10 ^3/uL (0-1.3); Monocytes % (auto) 1.9 % (0.0-12.0); Neutrophils # (auto) 11.7 10 ^3/uL (1.6-8.6); Nucleated Red Blood Cells % 0.1 %; Platelet Count (auto) 301 10^3/uL (140-450); Red Blood Cells 3.43 10^6/uL (4.5-5.90); Red Cell Distribution Width 14.3 % (11.8-14.3)
[2020-01-26 07:45] LABS: Albumin 1.5 g/dL (3.4-5.0); BUN/Creatinine Ratio 37.1; Calcium 7.2 mg/dL (8.5-10.1); Magnesium 2.3 mg/dL (1.6-2.6); Potassium 4.2 mmol/L (3.5-5.1)
[2020-01-26 07:48] LABS: Bilirubin, Total 0.4 mg/dL (0.2-1.0); Total Protein 5.3 g/dL (6.4-8.2)
[2020-01-26 09:00] VITALS: BP 132/91
[2020-01-26] MEDS ORDERED: methylPREDNISolone SOD SUCC 40 MG/ML VL IV ONE (09:00)
[2020-01-26] MEDS ORDERED: ACETAMINOPHEN 650 mg PER 20.3 mL UD PO ONE (09:00)
[2020-01-26] MEDS ORDERED: diphenhdrAMINE HCL 50 MG/1 ML VL IV ONE (09:00)
--- NOTE | 2020-01-26 09:00 | NUR ---
Patient declined to prone, will attempt later.
[2020-01-26] MEDS ORDERED: TOCILIZUMAB 400 MG in SODIUM CHL 0.9% 80 ML IV ONE (09:30)
--- NOTE | 2020-01-26 09:40 | NUR ---
Per pharmacy holding actemra and pre medication until Dr reyes clears admin of med.
[2020-01-26] MEDS: DexAMETHasone SOD PHOS 10MG/1ML VIAL INJ IV SCH (09:54)
[2020-01-26] MEDS: ZINC SULFATE 220mg CAP or TAB PO SCH (09:54)
[2020-01-26] MEDS: CHOLECALCIFEROL (VITD3) 2,000 UNIT CAP PO SCH (09:55)
[2020-01-26] MEDS: ASCORBIC ACID 1,000 MG TAB PO SCH (09:55)
[2020-01-26] MEDS: POTASSIUM CHL 10 Meq TABLET PO SCH (09:55)
[2020-01-26] MEDS: FAMOTIDINE 20 MG TAB PO SCH (09:55)
[2020-01-26] MEDS: ENOXAPARIN SOD 80 MG/0.8ML SYRINGE SC SCH (09:56)
[2020-01-26] MEDS: FUROSEMIDE 20 MG/2 ML VIAL IV SCH (09:56)
[2020-01-26] MEDS: BUDESONIDE (INHALATION) 180 MCG IH IN SCH (11:19)
--- NOTE | 2020-01-26 12:00 | NUR ---
Patient continues to decline to prone.
[2020-01-26] MEDS ORDERED: PPN PER PHARMACY 0 ML IV SCH (12:30)
[2020-01-26 12:38] LABS: Phosphorus 4.8 mg/dL (2.5-4.90)
[2020-01-26 13:00] VITALS: BP 92/54
[2020-01-26 13:00] LABS: Pre Albumin 9.9 mg/dL (20.0-40.0)
[2020-01-26 17:00] VITALS: BP 97/59
--- NOTE | 2020-01-26 17:45 | NUR ---
Patient asked for anxiety medication as the bipap makes him anxious. Administered meds as ordered. Paged RT to ensure bipap was as comfortable as possible. RT said bipap was on correctly and as comfortable as possible.
[2020-01-26] MEDS ORDERED: FUROSEMIDE 40 MG/4 ML VIAL IV SCH (18:00)
[2020-01-26] MEDS ORDERED: POTASSIUM CHL 10 Meq TABLET PO SCH (18:00)
--- NOTE | 2020-01-26 19:15 | NUR ---
Opening Shift Note Bed alarm went off during shift change, upon entering room patient was found with BIPAP off, manager cardiac off, IV pulled out (with catheter intact), and attempting to get out of bed. Patient was alert and oriented to self and very lethargic at this time. Patient was assisted back into bed by primary dayshikassandra RN, nba RN, and Carmen RN. BIPAP was placed back on patient. Unable to obtain accurate oxygen saturation at this time due to cold extremities. RT was paged from the bedside. Shift change completed at the bedside. Bed is locked in lowest position, side rails x 2 are up, call light is within reach, and bed alarm is on.
--- NOTE | 2020-01-26 19:25 | NUR ---
Hospitalist Paged RE: Patient Status Hospitalist paged regarding patient status. Awaiting call back.
--- NOTE | 2020-01-26 19:28 | NUR ---
RT AT BEDSIDE RT at bedside due to this RN not being able to obtain oxygen saturation due to cool extremities.
--- NOTE | 2020-01-26 19:33 | NUR ---
Hospitalist Returned Call RE: Patient Status Dr. Jarrett notified that upon this RN beginning her shift, patient was found with BIPAP off and alert and oriented to self (change from baseline from previous night). Dr. Jarrett was also made aware that at this time we are not able to obtain an accurate oxygen saturation due to cold extremities. Orders received for STAT ABGs. Orders read back and verified. Will carry out orders as received.
--- NOTE | 2020-01-26 19:50 | NUR ---
RT AT BEDSIDE DRAWING ABG'S.
[2020-01-26] MEDS ORDERED: CLINIMIX PER PHARMACY IV NR (20:00)
--- NOTE | 2020-01-26 20:00 | NUR ---
IV Insertion IV access obtained, via clean sterile technique by inserting 22 gauge catheter at right wrist and 22 gauge at left wrist by resource nurse Karine and charge nurse Tamika after 3 attempts. IV secured properly. No trauma to site. Patient tolerated well.
--- NOTE | 2020-01-26 20:13 | NUR ---
Hospitalist Paged RE: Critical ABG result Hospitalist paged regarding critical ABG results. Awaiting call back.
--- NOTE | 2020-01-26 20:24 | NUR ---
Hospitalist Re-Paged RE: Critical ABG's Hospitalist re-paged regarding critical ABG's. Awaiting call back.
--- NOTE | 2020-01-26 20:33 | NUR ---
Hospitalist Returned Call RE: Critical ABG Results Hospitalist returned call regarding critical ABG results. Hospitalist made aware of critical ABG results. Orders received for 2 AMPS of bicarb and bicarb drip (2amps in 0.45% 1L normal saline bag at 75mls/hr) and to have ABG's redrawn 2 hours after starting the drip. Orders read back and verified. Will carry out orders as received.
[2020-01-26] MEDS ORDERED: SODIUM BICARBONATE 8.4 % INJ 50ML VIAL IV ONE ×2 (20:45→20:57)
[2020-01-26] MEDS ORDERED: SODIUM BICARBONATE 50ML VIAL 50 ML in SOD CHL 0.45% 1,000 ML IV ONE (20:45)
--- NOTE | 2020-01-26 21:00 | NUR ---
Rounds Patient laying in bed with BIPAP on, FIO2:100%, oxygen saturation 97% at this time, probe on ear lobe, RR:28. Bed is locked in lowest position, side rails x 2 are up, call light is within reach, and bed alarm is on.
[2020-01-26] MEDS ORDERED: SODIUM BICARBONATE 50ML VIAL 100 ML in SOD CHL 0.45% 1,000 ML IV ONE (21:15)
--- NOTE | 2020-01-26 22:12 | NUR ---
Change in Status: Maia Preciado This RN was called to the bedside by Jack HENAO due to tele monitor calling to notify that patient's oxygen saturation was trending down to the 60s and patient was bradycardiac at this time. This RN immediately went to the patient's room. Patient was found laying in bed with BIPAP on, SPO2 at this time on tele box was trending down into the 40s. RT was paged immediately from the bedside STAT to patient's room. Heart rate on the hack driver at this time was in the 40s, very faint pulse was felt. RT arrived at the bedside at this time. 22:15: Heart rate noted at 33 on the tele box, patient unresponsive. Pulse was palpated for a second time, no pulse was present at this time. Maia rpeciado was called. See maia preciado spreadsheet.
--- NOTE | 2020-01-26 22:46 | NUR ---
Updated Son Jose Alfredo Mina Called the following number on file [phone] for Liza Delacruz. Son Jose Alfredo Mina answered, after obtaining and verifying password, son was notified that patient passed. Per Jose Alfredo they have not decided on a mortuary. Per Jose Alfredo family will decide on mortuary tomorrow.
--- NOTE | 2020-01-26 22:55 | NUR ---
Received Call From Daughter Received call from daughter Bharti, after obtaining and verifying password, notified Bharti that patient . Questions/concerns were addressed and answered.
--- NOTE | 2020-01-26 23:00 | NUR ---
[facility] called. Spoke with Magnus. Per Magnus, "no tissue donation body can be released." Referral number [id number].
--- NOTE | 2020-01-26 23:17 | NUR ---
Station Repairer Spoke with Debbie Corona, leather cutter home management supervisor. Per Debbie No case number, "Mortuary will report. Body released."
[2020-01-27] MEDS ORDERED: InsuLIN REG 1unit/0.01ml Soln (100units/ml) SC SCH
[2020-01-27] MEDS ORDERED: EPINEPHrine HCL 1 MG/10 ML SYRG IV ONE (07:47)
[2020-01-27] MEDS ORDERED: CALCIUM CHLOR(10%) 100MG/ML 10ML SYRINGE IV ONE (07:47)
[2020-01-27] MEDS ORDERED: SODIUM BICARBONATE 8.4% INJ 50ML SYRINGE IV ONE (07:47)
--- NOTE | 2020-01-27 07:48 | NUR ---
[facility] Body released to [facility]. Addendum: 01/27/20 at 0857 by DEE DEE LPEE RN RN Daughter Bharti made aware that patient was sent to [facility] due our mortuary being full. Address was provided [address] [place] [id number]. Phone number was provided [phone]. Bharti made aware that patient's belongings will be in [facility]. Bharti verbalized understanding.
--- NOTE | 2020-01-29 05:53 | NUR ---
CODE BLUE DOCUMENTATION FOR 01/25/20 AT 0825 IS DOCUMENTED AND SIGNED ON THE WRONG PATIENT. THIS DOCUMENT DOES NOT BELONG TO THIS PATIENT
== END 2020-01-27 07:48 | DRG 871 ==
LOC: EDBD 14:47 → ER 14:52 → OVERFLOW 18:40 → TELE-EAST 01-21 04:45 → TELE-WESTW 01-24 16:02
PROVIDERS: ADMIT Nurse Practitioner Acute Care; ATTEND Internal Medicine
PROC: XW033E5 Introduction of Remdesivir Anti-infective into Peripheral Vein, Percutaneous Approach, New Technology Group 5 (ICD-10-PCS; 2020-01-20)
PROC: XW13325 Transfusion of Convalescent Plasma (Nonautologous) into Peripheral Vein, Percutaneous Approach, New Technology Group 5 (ICD-10-PCS; principal; 2020-01-23)
PROC: 5A09457 Assistance with Respiratory Ventilation, 24-96 Consecutive Hours, Continuous Positive Airway Pressure (ICD-10-PCS; 2020-01-25)
PROC: 5A12012 Performance of Cardiac Output, Single, Manual (ICD-10-PCS; 2020-01-25)
PROC: XW033H5 Introduction of Tocilizumab into Peripheral Vein, Percutaneous Approach, New Technology Group 5 (ICD-10-PCS; 2020-01-25)
PROC: 5A12012 Performance of Cardiac Output, Single, Manual (ICD-10-PCS; 2020-01-26)
DX: A41.89 Other specified sepsis (principal); U07.1 COVID-19; J12.89 Other viral pneumonia; J96.01 Acute respiratory failure with hypoxia; N17.0 Acute kidney failure with tubular necrosis; D68.59 Other primary thrombophilia; I10 Essential (primary) hypertension; E78.5 Hyperlipidemia, unspecified; E66.01 Morbid (severe) obesity due to excess calories; E86.0 Dehydration; D72.810 Lymphocytopenia; E11.9 Type 2 diabetes mellitus without complications; F41.1 Generalized anxiety disorder; E55.9 Vitamin D deficiency, unspecified; Z68.26 Body mass index [BMI] 26.0-26.9, adult; I46.9 Cardiac arrest, cause unspecified
CPT/HCPCS: 36415; 36600; 71045; 71275; 80048; 80053; 80061; 82040; 82306; 82728; 82805; 82962; 83036; 83605; 83615; 83735; 84100; 84443; 84478; 84484; 85007; 85025; 85027; 85379; 85610; 85730; 86141; 86850; 86900; 86901; 87040; 87086; 87426; 92950; 93005; 93970; 94640; 94660; 96365; 97110; 97530; G0378; J0696; J1100; J1815; J2543